=== PATIENT | female | born 1940 | race Caucasian/White ===

== ENCOUNTER → 2017-04-28 | Outpatient (CLI) | payer OTHER ==
[2015-01-22 09:21] VITALS: BP 174/89
[~2017-04-28] MED LIST: CARV6.252 PO; CEPH-264 PO; CITA10TA4 PO; CRESTOR20 MG PO; GLIM1TAB2 PO; HYDR12.58 PO; LISI-338 PO; LORA10TA3 PO; MAG355OR11 PO; MELO15TA23 PO; METF1000 PO
[2017-04-28 11:49] LABS: BASO # 0.1 x10^3/uL (0.0-0.2); BASO % 1 % (0-3); EOS # 0.3 x10^3/uL (0.0-0.7); EOS % 4 % (0-3); HEMATOCRIT 38.8 % (36.0-47.0); HEMOGLOBIN 13.2 g/dL (12.0-15.5); LYMPH # 1.9 x10^3/uL (1.0-4.8); LYMPH % 28 % (24-48); MEAN CORPUSCULAR HEMOGLOBIN 32 pg (25-35); MEAN CORPUSCULAR HGB CONC 34 g/dL (31-37); MEAN CORPUSCULAR VOLUME 93 fL (79-100); MONO # 0.6 x10^3/uL (0.0-1.1); MONO % 9 % (0-9); NEUT # 4.2 x10^3uL (1.8-7.7); NEUT % 59 % (31-73); PLATELET COUNT 180 x10^3/uL (140-400); RED BLOOD COUNT 4.18 x10^6/uL (3.50-5.40); RED CELL DISTRIBUTION WIDTH 14.4 % (11.5-14.5); WHITE BLOOD COUNT 7.1 x10^3/uL (4.0-11.0)
[2017-04-28 12:05] LABS: ALBUMIN 3.7 g/dL (3.4-5.0); CALCIUM 9.3 mg/dL (8.5-10.1); CREATININE 0.7 mg/dL (0.6-1.0); GFR 81.8; MAGNESIUM 1.4 mg/dL (1.8-2.4); PHOSPHORUS 4.1 mg/dL (2.6-4.7); POTASSIUM 3.6 mmol/L (3.5-5.1)
[2017-04-29 11:09] LABS: CALCIUM PTH 9.5 mg/dL (8.7-10.3); CREATININE PTH 0.71 mg/dL (0.57-1.00); PTH INTACT 29 pg/mL (15-65)
== END | disposition home or self-care (01) ==
LOC: LAB 10:57
PROVIDERS: ATTEND Internal Medicine Nephrology
DX: E87.1 Hypo-osmolality and hyponatremia (principal); E11.9 Type 2 diabetes mellitus without complications; I10 Essential (primary) hypertension; E21.5 Disorder of parathyroid gland, unspecified; Z68.33 Body mass index [BMI] 33.0-33.9, adult; F17.200 Nicotine dependence, unspecified, uncomplicated
CPT/HCPCS: 36415; 80069; 82306; 83735; 83970; 85025

== ENCOUNTER 2021-02-10 18:36 | Inpatient (IN) | payer MEDICARE, OTHER ==
[~2021-02-10] VITALS: Ht 157.5 cm; Wt 85.1 kg
[~2021-02-10 18:36] MED LIST changes: -CARV6.252 PO; +CARV6.2541 PO; -CITA10TA4 PO; +CITA10TA5 PO; -GLIM1TAB2 PO; +GLIM1TAB7 PO; -LISI-338 PO; +LISI5TAB15 PO
[2021-02-10] MEDS ORDERED: IV NORMAL SALINE 1,000ML 1,000 ML IV ONE (20:30)
[2021-02-10 20:51] LABS: BASO % 1 % (0-3); EOS # 0.1 x10^3/uL (0.0-0.7); EOS % 2 % (0-3); HEMATOCRIT 42.4 % (36.0-47.0); HEMOGLOBIN 13.5 g/dL (12.0-15.5); LYMPH # 0.8 x10^3/uL (1.0-4.8); LYMPH % 13 % (24-48); MEAN CORPUSCULAR HEMOGLOBIN 30 pg (25-35); MEAN CORPUSCULAR HGB CONC 32 g/dL (31-37); MEAN CORPUSCULAR VOLUME 93 fL (79-100); MONO # 0.7 x10^3/uL (0.0-1.1); MONO % 12 % (0-9); NEUT # 4.7 x10^3uL (1.8-7.7); NEUT % 73 % (31-73); PLATELET COUNT 131 x10^3/uL (140-400); RED BLOOD COUNT 4.55 x10^6/uL (3.50-5.40); WHITE BLOOD COUNT 6.5 x10^3/uL (4.0-11.0)
--- NOTE | 2021-02-10 20:58 | PHYS DOC ---
Past History Past Medical History: COPD, Diabetes, Heart Disease, Other (FARRAH VYAS APRN) Past Surgical History: Coronary Bypass Surgery, Hysterectomy, Other (FARRAH VYAS APRN) Alcohol Use: None Drug Use: None (FARRAH VYAS APRN) General Adult EDM: Chief Complaint: HYPERTENSION HPI: HPI: Patient is a 80-year-old female presents with daughter for elevated blood sugar. Patient states "I feel completely fine, my family is the one that made me come in". Patient denies chest pain, shortness of breath, recent illness. Patient is alert and oriented denies any complaints at this time. (FARRAH VYAS APRN) Review of Systems: Review of Systems: ROS At least 10 ROS systems have been reviewed and are negative except as documented in the HPI. General: Negative except as outlined in HPI above. Skin: Negative except as outlined in HPI above. HEENT: Negative except as outlined in HPI above. Neck: Negative except as outlined in HPI above. Respiratory: Negative except as outlined in HPI above.. Cardiovascular: Negative except as outlined in HPI above. Abdomen: Negative except as outlined in HPI above. : Negative except as outlined in HPI above. Back/MSK: Negative except as outlined in HPI above. Neuro: Negative except as outlined in HPI above. Psych: Negative except as outlined in HPI above. (FARRAH VYAS APRN) Current Medications: Current Meds: Current Medications Medications (Trade) Dose Ordered Sig/Apryl Start Time Stop Time Status Last Admin Dose Admin Sodium Chloride 1,000 ml @ 1,000 mls/hr 1X ONCE 02/10/21 20:30 02/10/21 21:29 (FARRAH VYAS APRN) Allergies: Allergies: Allergies Coded Allergies Type Severity Reaction Last Updated Verified No Known Drug Allergies 01/22/15 No (FARRAH VYAS APRN) Physical Exam: PE: Constitutional: Well developed, well nourished, no acute distress, non-toxic appearance. [] HENT: Normocephalic, atraumatic, bilateral external ears normal, oropharynx moist, no oral exudates, nose normal. [] Eyes: PERRLA, EOMI, conjunctiva normal, no discharge. [] Neck: Normal range of motion, no tenderness, supple, no stridor. [] Cardiovascular:Heart rate regular rhythm, no murmur [] Lungs & Thorax: Bilateral breath sounds clear to auscultation [] Abdomen: Bowel sounds normal, soft, no tenderness, no masses, no pulsatile masses. [] Skin: Warm, dry, no erythema, no rash. [] Back: No tenderness, no CVA tenderness. [] Extremities: No tenderness, no cyanosis, no clubbing, ROM intact, no edema. [] Neurologic: Alert and oriented X 3, normal motor function, normal sensory function, no focal deficits noted. [] Psychologic: Affect normal, judgement normal, mood normal. [] (FARRAH VYAS APRN) Current Patient Data: Labs: Laboratory Tests Test 02/10/21 19:07 Glucose (Fingerstick) 258 mg/dL (70-99) H Vital Signs: Vital Signs Date Time Temp Pulse Resp B/P (MAP) Pulse Ox O2 Delivery O2 Flow Rate FiO2 02/10/21 19:20 98.6 90 18 142/76 (98) 89 Nasal Cannula 3.0 (FARRAH VYAS APRN) EKG: EKG: HR 89 BPM. No STEMI. Read by Dr. Mendoza at 2051 (FARRAH VYAS APRN) Radiology/Procedures: Radiology/Procedures: []XR CHEST 1V INDICATION: cough COMPARISON STUDY: None. FINDINGS: Lungs: Normal lung volume. Patchy bilateral heterogeneous opacities. Indistinct pulmonary vasculature. Pleura: No pleural effusion or pneumothorax. Heart and Mediastinum: Cardiomegaly. Tortuous atherosclerotic aorta. CABG. Cardiac valve replacement. IMPRESSION: Patchy bilateral opacities, likely edema or infection. Electronically signed by: Buster Bear MD (02/10/2021 10:00 PM) [facility] (FARRAH VYAS APRN) Heart Score: C/O Chest Pain: No Risk Factors: Risk Factors: DM, Current or recent (<one month) smoker, HTN, HLP, family history of CAD, obesity. Risk Scores: Score 0 - 3: 2.5% MACE over next 6 weeks - Discharge Home Score 4 - 6: 20.3% MACE over next 6 weeks - Admit for Clinical Observation Score 7 - 10: 72.7% MACE over next 6 weeks - Early Invasive Strategies (FARRAH VYAS APRN) Course & Med Decision Making: Course & Med Decision Making Pertinent Labs and Imaging studies reviewed. (See chart for details) [] 80-year-old female presents with daughter per family request for elevated blood sugar. Blood sugar on arrival was 258. Patient's alert and oriented and denying any complaints. Denying chest pain, shortness of breath. Patient was hypoxic, 86% on 3 L. Patient placed on 4 L and some saturation improved to low 90s. Discussed with daughter and patient that she would most likely need to be admitted overnight for hypoxia. Patient was hesitant about being admitted but agreed after discussing with daughter. All labs were unremarkable. Chest x-ray suspicious for infection. Patient started on Rocephin and azithromycin. Rapid Covid was negative. Discussed patient's case with Dr. Persaud. Patient will be accepting to telemetry for acute/on chronic respiratory failure. (FARRAH VYAS APRN) Dragon Disclaimer: Dragon Disclaimer: This electronic medical record was generated, in whole or in part, using a voice recognition dictation system. (FARRAH VYAS APRN) Departure Departure: Impression: Primary Impression: Acute and chronic respiratory failure ([id number]) Qualified Codes: J96.21 - Acute and chronic respiratory failure with hypoxia Additional Impression: Hyperglycemia due to type 2 diabetes mellitus Qualified Codes: E11.65 - Type 2 diabetes mellitus with hyperglycemia; Z79.4 - FDC (current) use of insulin Disposition: ADMITTED INPATIENT Admitting Physician: Polo Persaud (FARRAH VYAS APRN) Condition: STABLE Referrals: JULIO REYNA MD (PCP) Attending Signature Attending Signature I have reviewed the PA/ELECTRONICS ENGINEERING TECHNOLOGIST's note and plan of care. I was available for consultation as needed during the patient's visit in the emergency department. I agree with the clinical impression, plan, and disposition. (YAMILKA MENDOZA DO) FARRAH VYAS APRN Feb 10, 2021 20:58 YAMILKA MENDOZA DO Feb 11, 2021 02:02
[2021-02-10 21:11] LABS: CALCIUM 8.6 mg/dL (8.5-10.1); CREATININE 0.8 mg/dL (0.6-1.0); GFR 69.4
[2021-02-10 21:17] LABS: ALBUMIN/GLOBULIN RATIO 0.8 (1.0-1.7); TOTAL BILIRUBIN 0.8 mg/dL (0.2-1.0)
--- NOTE | 2021-02-10 22:03 | RAD ---
XR CHEST 1V INDICATION: cough COMPARISON STUDY: None. FINDINGS: Lungs: Normal lung volume. Patchy bilateral heterogeneous opacities. Indistinct pulmonary vasculature . Pleura: No pleural effusion or pneumothorax. Heart and Mediastinum: Cardiomegaly. Tortuous atherosclerotic aorta. CABG. Cardiac valve replacement. IMPRESSION: Patchy bilateral opacities, likely edema or infection. Electronically signed by: Buster Bear MD (02/10/2021 10:00 PM) [facility] CAREAnabel
[2021-02-10] MEDS ORDERED: AZITHROMYCIN 500 MG in IV NORMAL SALINE 250ML 250 ML IV ONE (23:00)
[2021-02-10 23:24] VITALS: BP 138/69
[2021-02-11 05:34] VITALS: BP 147/75
[2021-02-11 09:01] LABS: BASO % 1 % (0-3); EOS # 0.2 x10^3/uL (0.0-0.7); EOS % 3 % (0-3); HEMATOCRIT 40.2 % (36.0-47.0); HEMOGLOBIN 13.1 g/dL (12.0-15.5); LYMPH # 1.2 x10^3/uL (1.0-4.8); LYMPH % 18 % (24-48); MEAN CORPUSCULAR HEMOGLOBIN 30 pg (25-35); MEAN CORPUSCULAR HGB CONC 33 g/dL (31-37); MEAN CORPUSCULAR VOLUME 93 fL (79-100); MONO # 0.6 x10^3/uL (0.0-1.1); MONO % 10 % (0-9); NEUT # 4.5 x10^3uL (1.8-7.7); NEUT % 69 % (31-73); PLATELET COUNT 125 x10^3/uL (140-400); RED BLOOD COUNT 4.34 x10^6/uL (3.50-5.40); RED CELL DISTRIBUTION WIDTH 15.2 % (11.5-14.5); WHITE BLOOD COUNT 6.5 x10^3/uL (4.0-11.0)
[2021-02-11 09:15] LABS: ALBUMIN 2.9 g/dL (3.4-5.0); ALBUMIN/GLOBULIN RATIO 0.8 (1.0-1.7); CALCIUM 8.6 mg/dL (8.5-10.1); CREATININE 0.8 mg/dL (0.6-1.0); GFR 69.4; POTASSIUM 3.8 mmol/L (3.5-5.1); TOTAL BILIRUBIN 0.6 mg/dL (0.2-1.0); TOTAL PROTEIN 6.7 g/dL (6.4-8.2)
[2021-02-11 10:50] VITALS: BP 149/73
[2021-02-11] MEDS ORDERED: FUROSEMIDE 40 MG/4 ML VIAL IVP ONE (13:00)
--- NOTE | 2021-02-11 13:13 | EKG ---
[address] [address] Test Date: 2021-02-10 Test Time: 20:44:37 Pat Name: ALANA JULIAN Department: Room: 107 A Gender: F District Sales Representative: : 1940 Requested By: FARRAH VYAS Order Number: [id number] Reading MD: Dane Yarbrough Measurements Intervals [place] Rate: 89 P: 53 IA: 220 QRS: 183 QRSD: 86 T: 54 QT: 386 QTc: 471 Interpretive Statements SINUS RHYTHM VENTRICULAR PREMATURE COMPLEX(ES) PROLONGED IA INTERVAL QRS(T) CONTOUR ABNORMALITY CONSISTENT WITH ANTEROSEPTAL INFARCT AGE UNDETERMINED ABNORMAL ECG RI6.02 No previous ECG available for comparison Electronically Signed On 02-11-2021 15:57:54 CDT by Dane Yarbrough
[2021-02-11] MEDS: ENOXAPARIN 40 MG/0.4 ML SYRINGE. SQ SCH (13:48)
--- NOTE | 2021-02-11 14:50 | HP ---
DATE OF SERVICE: 02/11/2021 ADMIT DATE: 02/10/2021 HISTORY OF PRESENT ILLNESS: The patient is a 80-year-old female patient who was brought yesterday by her daughter to the Emergency Room, apparently for elevated blood sugar. The patient herself stated that she is completely fine and her family is the one that made her come. On questioning her, she did complain of cough with whitish sputum. Did complain of shortness of breath, but denied any orthopnea or paroxysmal nocturnal dyspnea. Did complain of swelling of both legs. She is on oxygen and she continues to smoke about 15 cigarettes a day. She apparently was evaluated in the Emergency Room and has had both lab work and imaging studies. Her lab work showed that her white cell count was normal at 6500. Her chemistry showed she has hyperglycemia and elevated bicarbonate, but otherwise her chemistry was mostly unremarkable. Did have a chest x-ray, which showed that the patient's lungs showed patchy bilateral heterogenous opacities and indistinct pulmonary vasculature. There was no pleural effusion or pneumothorax. The heart was enlarged with tortuous atherosclerotic aorta, coronary artery bypass graft and cardiac valve replacement and that the patient has patchy bilateral opacities, likely edema or infection. The patient was admitted, was given treatment with IV ceftriaxone as well as Zithromax and also a liter of normal saline, was admitted for further evaluation and treatment. PAST MEDICAL HISTORY: Significant for hypertension, hyperlipidemia, coronary artery disease status post CABG and bioprosthetic valve replacement, chronic obstructive pulmonary disease, and nicotine addiction. She also has history of glaucoma. PAST SURGICAL HISTORY: Significant for total abdominal hysterectomy and bilateral salpingo-oophorectomy, coronary artery bypass graft surgery, bioprosthetic valve replacement, bilateral cataract extraction, as well as appendectomy. ALLERGIES: She has no known drug allergies. MEDICATIONS: She is currently on the following medication: She is on loratadine 10 mg once a day, cephalexin 500 mg 3 times a day, carvedilol 6.25 mg twice a day, lisinopril 5 mg once a day, meloxicam 15 mg daily, citalopram hydrobromide 10 mg once a day, hydrochlorothiazide 25 mg once a day, Mylanta 15 mL after meals and as needed, metformin 1000 mg twice a day, glimepiride 1 mg daily and Crestor 20 mg at bedtime. FAMILY HISTORY: She has 3 sisters and 2 older and 2 younger sisters are still alive. Her father at age of 74 due to complication of coronary artery disease. Mother at age of 90. SOCIAL HISTORY: She is , has 1 son and 4 daughters. She continues to smoke about 15 cigarettes a day. She does not drink alcohol or use recreational drugs. 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 REVIEW OF SYSTEMS: The patient denied any blurring of vision, has bilateral cataract extraction and has glaucoma, but denied any macular degeneration. Denied any earache, tinnitus or sensory deafness. Denied any nosebleed, stuffy nose or postnasal drip. Denied any sore throat, sore tongue, toothache, hoarseness of voice or difficulty swallowing. She denied any nausea, vomiting, diarrhea or constipation. Denied any hematemesis, melena or hematochezia. Denied any dysuria, frequency or hematuria. Denied any chest pain. Did complain of shortness of breath, cough with whitish sputum. Denied any chills, rigors or fever. PHYSICAL EXAMINATION: GENERAL: On arrival to the Emergency Room, the patient looked well and was clearly in no apparent respiratory distress. No pallor, jaundice, cyanosis or thyromegaly. No jugular venous distention. No limb edema. VITAL SIGNS: Her heart rate was 90, blood pressure is 142/76, temperature was 98.6, respiratory rate was 18 and oxygen saturation was 89% on room air. HEAD, EYES, EARS, NOSE, AND THROAT: Normocephalic, atraumatic. NECK: Supple. HEART: Showed normal first and second heart sounds, no gallop, rub or murmur. CHEST: Showed central trachea, equally bilateral chest expansion, air entry, vesicular breath sounds with bilateral basal crepitation. I could not appreciate any rhonchi. ABDOMEN: Distended, soft, nontender. NEUROLOGIC: She was grossly intact. EXTREMITIES: Bilateral lower extremities showed no clubbing, cyanosis, but bilateral lower limb edema. LABORATORY DATA: Her lab work on arrival showed a white cell count of 6500, hemoglobin 13, hematocrit 42, MCV 93, and platelet count of 131,000 with normal manual differential. Her chemistry showed a serum sodium 140, potassium 4, chloride 101, bicarbonate 37, anion gap of 2, BUN 13, creatinine 0.8. Estimated GFR was 69 mL per minute. Her glucose 111, calcium was 8.6. Total bilirubin, AST, ALT were normal. Alkaline phosphatase slightly elevated. Total protein 7, albumin 3. ASSESSMENT AND PLAN: In summary, the patient was admitted with [id number] hypoxic respiratory failure and probably [id number] heart failure. Has mild hyperglycemia. The patient was started on IV antibiotic in the form of Zithromax and ceftriaxone. Her x-ray showed patchy bilateral infiltrate. Plan is to reconcile all her medication. We will continue with IV antibiotics. We will add also IV Lasix and repeat all her labs again and decide on further management accordingly. ERIC/NELL/IQB DR: [place] TID: [id number]
[2021-02-11 15:04] VITALS: BP 161/90
[2021-02-11] MEDS: CARVEDILOL 6.25 MG TABLET PO SCH (16:11)
[2021-02-11] MEDS: metFORMIN 500 MG TABLET PO SCH (16:11)
[2021-02-11] MEDS: ATORVASTATIN CALCIUM 20 MG TABLET PO SCH (20:07)
[2021-02-11] MEDS: POTASSIUM CHLORIDE 20 MEQ TABLET.ER. PO SCH (20:07)
[2021-02-11 20:24] VITALS: BP 131/72
--- NOTE | 2021-02-12 00:55 | PN ---
DATE: 02/11/2021 SUBJECTIVE: The patient is sitting comfortably in her chair, eating her lunch. She continued to complain of cough with whitish sputum and some shortness of breath on exertion and swollen legs. Denied any chest pain. Denied any chills, rigors, or fever. Denied any orthopnea or paroxysmal nocturnal dyspnea. PHYSICAL EXAMINATION: GENERAL: When I examined her, she looked well and was clearly in no apparent respiratory distress. VITAL SIGNS: Her heart rate was 87, blood pressure was 149/73, temperature was 98.4, respiratory rate 20, and oxygen saturation was 91% on 4 liters of oxygen. HEAD, EYES, EARS, NOSE, AND THROAT: Normocephalic and atraumatic. NECK: Supple. HEART: Normal first and second heart sounds, no gallop or murmur. CHEST: Showed central trachea, equal bilateral chest expansion, air entry, vesicular breath sounds with bilateral basal crepitation. I could not appreciate any rhonchi. ABDOMEN: Distended, soft, and nontender. NEUROLOGIC: She was grossly intact. Her intake over the last 24 hours was 1400. No output was recorded. LABORATORY DATA: As of this morning, her white cell count was 6500, hemoglobin 13, hematocrit 40, MCV 93, and platelet count of 125,000. Her chemistry showed serum sodium 140, potassium 3.8, chloride 100, bicarbonate 35, anion gap of 5, BUN 9, and creatinine 0.8. Estimated GFR was 69 mL per minute. Her glucose was 180. Calcium was 8.6. Total bilirubin, AST, ALT, and alkaline phosphatase were normal. Total protein 6.7, albumin was 2.9. ASSESSMENT: 1. Acute on chronic hypoxic respiratory failure, probably community-acquired pneumonia. 2. Acute on chronic, likely diastolic congestive heart failure. Other medical problems include hypertension, hyperlipidemia, coronary artery disease status post coronary artery bypass grafting, chronic obstructive pulmonary disease, and continued nicotine use disorder. PLAN: My plan is to continue with IV antibiotic in the form of ceftriaxone as well as oral Zithromax. I reconciled all her medications and start her also on IV Lasix. We will repeat all her lab works again to evaluate her, and if she remains stable, she could be discharged to home on oral antibiotic and oral diuretics. ERIC/ASHTYN/CHIDI DR: [place] TID: [id number]
[2021-02-12 05:29] VITALS: BP 142/75
[2021-02-12 06:44] LABS: ALBUMIN 2.7 g/dL (3.4-5.0); ALBUMIN/GLOBULIN RATIO 0.7 (1.0-1.7); CALCIUM 8.7 mg/dL (8.5-10.1); CREATININE 0.8 mg/dL (0.6-1.0); GFR 69.4; POTASSIUM 3.7 mmol/L (3.5-5.1); TOTAL BILIRUBIN 0.8 mg/dL (0.2-1.0); TOTAL PROTEIN 6.4 g/dL (6.4-8.2)
[2021-02-12] MEDS: AZITHROMYCIN 250 MG TABLET. PO SCH (07:49)
[2021-02-12] MEDS: CETIRIZINE HCL 10 MG TABLET PO SCH (07:49)
[2021-02-12] MEDS: metFORMIN 500 MG TABLET PO SCH ×2 (07:49→16:33)
[2021-02-12] MEDS: GLIMEPIRIDE 2 MG TABLET PO SCH (07:50)
[2021-02-12] MEDS: CARVEDILOL 6.25 MG TABLET PO SCH ×2 (07:50→16:33)
[2021-02-12] MEDS: POTASSIUM CHLORIDE 20 MEQ TABLET.ER. PO SCH ×2 (07:50→21:00)
[2021-02-12] MEDS: LISINOPRIL 5 MG TABLET. PO SCH (07:51)
[2021-02-12] MEDS: FUROSEMIDE 40 MG/4 ML VIAL IVP SCH (07:51)
[2021-02-12] MEDS: CITALOPRAM 10 MG TABLET. PO SCH (07:51)
--- NOTE | 2021-02-12 08:51 | PDOC2 ---
MAHESH JOVEL HISTOLOGY SUPERVISOR 02/12/21 0851: CARDIAC CONSULT DATE OF CONSULT DOS: DATE: 02/12/21 TIME: 08:44 REASON FOR CONSULT Reason for Consult CHF REFERRING PHYSICIAN Referring Physician Dr. Elmore SOURCE Source: Chart review, Patient HPI History of Present Illness This is a 80 yo female who presented secondary to elevated blood sugars following encouragement from her family. Upon further investigation, patient did reports some shortness of breath, LE edema, and cough productive of white/clear sputum. CXR notable for patchy bilateral opacities, likely edema or infection. Cardiology consultation was obtained due to concerns of CHF. She denies any dizziness, diaphoresis, or nausea/vomiting. Reports LE edema is slightly better following diuresis. Followed previously with [facility] cardiology. PAST MEDICAL HISTORY Cardiovascular: CAD, CHF, HTN, hyperipidemia, aortic stenosis (s/p bioprosthetic AVR) Pulmonary: COPD, Other (ADAM) GI: GERD Psych: Depression Endocrine: Diabetes PAST SURGICAL HISTORY Past Surgical History: Appendectomy, CABG, Cataract Removal, Hysterectomy FAMILY HISTORY Family History: Diabetes, Heart Disease, Hypertension SOCIAL HISTORY Smoke: <1 pack per day ALCOHOL: none Drugs: None Lives: with Family CURRENT MEDICATIONS Current Medications Current Medications Sodium Chloride 1,000 ml @ 1,000 mls/hr 1X ONCE IV Last administered on 02/10/21at 20:30; Start 02/10/21 at 20:30; Stop 02/10/21 at 21:29; Status DC Ceftriaxone Sodium 1 gm/ Sodium Chloride 50 ml @ 100 mls/hr 1X ONCE IV Last administered on 02/10/21at 23:33; Start 02/10/21 at 23:00; Stop 02/10/21 at 23:29; Status DC Azithromycin 500 mg/Sodium Chloride 250 ml @ 250 mls/hr 1X ONCE IV Last administered on 02/10/21at 23:33; Start 02/10/21 at 23:00; Stop 02/10/21 at 23:59; Status DC Carvedilol (Coreg) 6.25 mg BIDWMEALS PO Last administered on 02/12/21at 07:50; Start 02/11/21 at 17:00 Citalopram Hydrobromide (CeleXA) 10 mg DAILY PO Last administered on 02/12/21at 07:51; Start 02/12/21 at 09:00 Lisinopril (Prinivil) 25 mg DAILY PO Last administered on 02/12/21 07:51; Start 02/12/21 at 09:00 Glimepiride (Amaryl) 1 mg DAILY PO Last administered on 02/12/21 07:50; Start 02/12/21 at 09:00 Cetirizine HCl (ZyrTEC) 10 mg DAILY PO Last administered on 02/12/21 07:49; Start 02/12/21 at 09:00 Metformin HCl (Glucophage) 1,000 mg BIDWMEALS PO Last administered on 02/12/21 07:49; Start 02/11/21 at 17:00 Atorvastatin Calcium (Lipitor) 80 mg QHS PO Last administered on 02/11/21 20:07; Start 02/11/21 at 21:00 Ceftriaxone Sodium 1 gm/ Sodium Chloride 50 ml @ 100 mls/hr Q24H IV Last administered on 02/11/21at 20:08; Start 02/11/21 at 21:00 Azithromycin (Zithromax) 250 mg DAILY PO Last administered on 02/12/21at 07:49; Start 02/12/21 at 09:00 Furosemide (Lasix) 40 mg 1X ONCE IVP Last administered on 02/11/21 13:49; Start 02/11/21 at 13:00; Stop 02/11/21 at 13:17; Status DC Potassium Chloride (Klor-Con) 20 meq BID PO Last administered on 02/12/21 07:50; Start 02/11/21 at 21:00 Enoxaparin Sodium (Lovenox 40mg Syringe) 40 mg Q24H SQ Last administered on 02/11/21at 13:48; Start 02/11/21 at 13:00 Furosemide (Lasix) 40 mg DAILY IVP Last administered on 02/12/21 07:51; Start 02/12/21 at 09:00 Active Scripts Active Keflex (Cephalexin) 500 Mg Capsule 1 Cap PO TID Reported Meloxicam 15 Mg Tablet 1 Tab PO DAILY Citalopram Hbr (Citalopram Hydrobromide) 10 Mg Tablet 10 Mg PO DAILY Loratadine 10 Mg Tablet 1 Tab PO DAILY Maalox Advanced Suspension (Mag Hydrox/Al Hydrox/Simeth) 770 Ml Oral.susp 770 Ml PO Crestor (Rosuvastatin Calcium) 20 Mg Tablet 20 Mg PO HS Lisinopril 5 Mg Tablet 5 Tab PO DAILY Hydrochlorothiazide Tablet (Hydrochlorothiazide) 12.5 Mg Tablet 25 Tab PO DAILY Glucophage (Metformin Hcl) 1,000 Mg Tablet 1,000 Tab PO BID Carvedilol (Carvedilol) 6.25 Mg Tablet 6.25 Tab PO BID Glimepiride 1 Mg Tablet 1 Tab PO DAILY ALLERGIES Allergies: Coded Allergies: No Known Drug Allergies (Unverified , 01/22/15) ROS Review of Systems 14 point ROS conducted with pertinent positives noted above in HPI PHYSICAL EXAM General: Alert, Oriented X3, Cooperative, No acute distress HEENT: Atraumatic, Mucous membr. moist/pink Lungs: Other (diminished ) Heart: Regular rate Abdomen: Soft, No tenderness Extremities: Normal pulses, Other (2+ bilateral LE edema ) Skin: No breakdown Neuro: Normal speech, Sensation intact Psych/Mental Status: Mental status NL, Mood NL MUSCULOSKELETAL: Osteoarthritic changes both hands VITALS Vital Signs Vital Signs Date Time Temp Pulse Resp B/P (MAP) Pulse Ox O2 Delivery O2 Flow Rate FiO2 02/12/21 07:51 76 142/75 02/12/21 05:29 97.5 20 90 Nasal Cannula 4.0 LABS LABS Laboratory Tests Test 02/10/21 19:07 02/10/21 20:36 02/10/21 21:44 02/10/21 21:45 Glucose (Fingerstick) 258 mg/dL (70-99) White Blood Count 6.5 x10^3/uL (4.0-11.0) Red Blood Count 4.55 x10^6/uL (3.50-5.40) Hemoglobin 13.5 g/dL (12.0-15.5) Hematocrit 42.4 % (36.0-47.0) Mean Corpuscular Volume 93 fL (79-100) Mean Corpuscular Hemoglobin 30 pg (25-35) Mean Corpuscular Hemoglobin Concent 32 g/dL (31-37) Red Cell Distribution Width 15.0 % (11.5-14.5) Platelet Count 131 x10^3/uL (140-400) Neutrophils (%) (Auto) 73 % (31-73) Lymphocytes (%) (Auto) 13 % (24-48) Monocytes (%) (Auto) 12 % (0-9) Eosinophils (%) (Auto) 2 % (0-3) Basophils (%) (Auto) 1 % (0-3) Neutrophils # (Auto) 4.7 x10^3uL (1.8-7.7) Lymphocytes # (Auto) 0.8 x10^3/uL (1.0-4.8) Monocytes # (Auto) 0.7 x10^3/uL (0.0-1.1) Eosinophils # (Auto) 0.1 x10^3/uL (0.0-0.7) Basophils # (Auto) 0.0 x10^3/uL (0.0-0.2) Sodium Level 140 mmol/L (136-145) Potassium Level 4.0 mmol/L (3.5-5.1) Chloride Level 101 mmol/L (98-107) Carbon Dioxide Level 37 mmol/L (21-32) Anion Gap 2 (6-14) Blood Urea Nitrogen 13 mg/dL (7-20) Creatinine 0.8 mg/dL (0.6-1.0) Estimated GFR (Cockcroft-Gault) 69.4 BUN/Creatinine Ratio 16 (6-20) Glucose Level 211 mg/dL (70-99) Calcium Level 8.6 mg/dL (8.5-10.1) Total Bilirubin 0.8 mg/dL (0.2-1.0) Aspartate Amino Transf (AST/SGOT) 36 U/L (15-37) Alanine Aminotransferase (ALT/SGPT) 40 U/L (14-59) Alkaline Phosphatase 119 U/L (46-116) Total Protein 7.0 g/dL (6.4-8.2) Albumin 3.0 g/dL (3.4-5.0) Albumin/Globulin Ratio 0.8 (1.0-1.7) SARS-CoV-2 Antigen (Rapid) Negative (NEGATIVE) Coronavirus (COVID-19)(PCR) Not detected (NOT DETECTD) Test 02/11/21 07:36 02/11/21 08:53 02/11/21 11:23 02/11/21 16:41 Glucose (Fingerstick) 140 mg/dL (70-99) 205 mg/dL (70-99) 248 mg/dL (70-99) White Blood Count 6.5 x10^3/uL (4.0-11.0) Red Blood Count 4.34 x10^6/uL (3.50-5.40) Hemoglobin 13.1 g/dL (12.0-15.5) Hematocrit 40.2 % (36.0-47.0) Mean Corpuscular Volume 93 fL (79-100) Mean Corpuscular Hemoglobin 30 pg (25-35) Mean Corpuscular Hemoglobin Concent 33 g/dL (31-37) Red Cell Distribution Width 15.2 % (11.5-14.5) Platelet Count 125 x10^3/uL (140-400) Neutrophils (%) (Auto) 69 % (31-73) Lymphocytes (%) (Auto) 18 % (24-48) Monocytes (%) (Auto) 10 % (0-9) Eosinophils (%) (Auto) 3 % (0-3) Basophils (%) (Auto) 1 % (0-3) Neutrophils # (Auto) 4.5 x10^3uL (1.8-7.7) Lymphocytes # (Auto) 1.2 x10^3/uL (1.0-4.8) Monocytes # (Auto) 0.6 x10^3/uL (0.0-1.1) Eosinophils # (Auto) 0.2 x10^3/uL (0.0-0.7) Basophils # (Auto) 0.0 x10^3/uL (0.0-0.2) Sodium Level 140 mmol/L (136-145) Potassium Level 3.8 mmol/L (3.5-5.1) Chloride Level 100 mmol/L (98-107) Carbon Dioxide Level 35 mmol/L (21-32) Anion Gap 5 (6-14) Blood Urea Nitrogen 9 mg/dL (7-20) Creatinine 0.8 mg/dL (0.6-1.0) Estimated GFR (Cockcroft-Gault) 69.4 BUN/Creatinine Ratio 11 (6-20) Glucose Level 180 mg/dL (70-99) Calcium Level 8.6 mg/dL (8.5-10.1) Total Bilirubin 0.6 mg/dL (0.2-1.0) Aspartate Amino Transf (AST/SGOT) 30 U/L (15-37) Alanine Aminotransferase (ALT/SGPT) 35 U/L (14-59) Alkaline Phosphatase 105 U/L (46-116) Total Protein 6.7 g/dL (6.4-8.2) Albumin 2.9 g/dL (3.4-5.0) Albumin/Globulin Ratio 0.8 (1.0-1.7) Test 02/11/21 20:17 02/12/21 05:47 02/12/21 07:47 Glucose (Fingerstick) 197 mg/dL (70-99) 169 mg/dL (70-99) Sodium Level 140 mmol/L (136-145) Potassium Level 3.7 mmol/L (3.5-5.1) Chloride Level 100 mmol/L (98-107) Carbon Dioxide Level 38 mmol/L (21-32) Anion Gap 2 (6-14) Blood Urea Nitrogen 12 mg/dL (7-20) Creatinine 0.8 mg/dL (0.6-1.0) Estimated GFR (Cockcroft-Gault) 69.4 BUN/Creatinine Ratio 15 (6-20) Glucose Level 155 mg/dL (70-99) Calcium Level 8.7 mg/dL (8.5-10.1) Total Bilirubin 0.8 mg/dL (0.2-1.0) Aspartate Amino Transf (AST/SGOT) 34 U/L (15-37) Alanine Aminotransferase (ALT/SGPT) 36 U/L (14-59) Alkaline Phosphatase 100 U/L (46-116) FS-Qrd-Q-Type Natriuretic Peptide 2629 pg/mL (0-449) Total Protein 6.4 g/dL (6.4-8.2) Albumin 2.7 g/dL (3.4-5.0) Albumin/Globulin Ratio 0.7 (1.0-1.7) ASSESSMENT/PLAN Assessment/Plan 1. Diabetes, II with hyperglycemia; as per IM 2. Mild acute on chronic probable diastolic CHF; s/p IV diuresis 3. CAD s/p CABG 2012 4. Aortic stenosis s/p bioprosthetic AVR 5. Hypertension; controlled overall 6. Hyperlipidemia; statin 7. COPD with continued tobaccoism; discussed/encouraged cessation Recommendations Diuresis with monitoring of renal function Continue ACEi, BB therapy Secondary prevention Add ASA Outpatient echo Follow up with primary cardiology team at [facility] JUSTINA ACOSTA MD 02/13/21 1657: CARDIAC CONSULT ASSESSMENT/PLAN Assessment/Plan Patient seen and examined on 02/12/2021. I agree with our nurse practitioners assessment and plan. Diabetes, II with hyperglycemia; as per IM Mild acute on chronic probable diastolic CHF; improving s/p IV diuresis. Monitor renal function. CAD s/p CABG 2012. Continue medical treatment. Add ASA. Aortic stenosis s/p bioprosthetic AVR Hypertension; controlled Hyperlipidemia; statin COPD with continued tobaccoism; discussed/encouraged cessation MAHESH JOVEL APRN Feb 12, 2021 08:51 JUSTINA ACOSTA MD Feb 13, 2021 16:57
[2021-02-12 10:55] VITALS: BP 120/72
[2021-02-12] MEDS: ENOXAPARIN 40 MG/0.4 ML SYRINGE. SQ SCH (12:28)
[2021-02-12 15:52] VITALS: BP 145/71
[2021-02-12 19:38] VITALS: BP 115/55
--- NOTE | 2021-02-12 20:45 | PN ---
DATE: 02/12/2021 SUBJECTIVE: The patient is sitting comfortably in her chair in no apparent respiratory distress. She seemed to be much improved, has been up and about, walking. She is not coughing like yesterday. PHYSICAL EXAMINATION: GENERAL: When I examined her, she looked well with no pallor, jaundice, cyanosis or thyromegaly. No jugular venous distention. There is continued mild bilateral lower limb edema. VITAL SIGNS: Her heart rate was 76, blood pressure is 120/72, temperature was 98.3, respiratory rate 20, and oxygen saturation was 89% on 4 liters of oxygen. HEAD, EYES, EARS, NOSE, AND THROAT: Normocephalic, atraumatic. NECK: Supple. HEART: Normal first and second heart sounds. No gallop, rub or murmur. CHEST: Clear to auscultation. No crepitation or rhonchi. She does have actually bilateral basal crepitation, more so on the left than right. I could not appreciate any rhonchi. ABDOMEN: Distended, soft, nontender. NEUROLOGIC: She was grossly intact. Her intake over the last 24 hours was 1400, no output was recorded. LABORATORY DATA: As of this morning, her white cell count was 6500, hemoglobin 13, hematocrit 40, MCV 93, and platelet count of 125,000. Her chemistry showed a serum sodium of 140, potassium 3.7, chloride 100, bicarbonate 38, anion gap of 2, BUN 12, creatinine was 0.8. Estimated GFR was 69 mL per minute. Her glucose 155, calcium was 8.7. Total bilirubin, AST, ALT, alkaline phosphatase were normal. Her BNP was high at 2629. Total protein was 6.4, albumin was 2.7. ASSESSMENT: 1. Acute on chronic hypoxic respiratory failure. 2. Acute on chronic diastolic congestive heart failure. 3. Community-acquired pneumonia. 4. Chronic obstructive pulmonary disease. 5. Hypertension. 6. Hyperlipidemia. 7. Coronary artery disease status post bypass graft surgery. 8. Continued nicotine dependence. PLAN: To continue with IV antibiotic. Continue with IV Lasix. She will be discharged tomorrow to continue on oral antibiotic and oral diuretics, probably home with home health. ERIC DR: [place] TID: [id number]
[2021-02-12] MEDS: ATORVASTATIN CALCIUM 20 MG TABLET PO SCH (21:06)
[2021-02-13 05:24] VITALS: BP 108/70
[2021-02-13] MEDS: GLIMEPIRIDE 2 MG TABLET PO SCH (07:51)
[2021-02-13] MEDS: CITALOPRAM 10 MG TABLET. PO SCH (07:51)
[2021-02-13] MEDS: CARVEDILOL 6.25 MG TABLET PO SCH (07:51)
[2021-02-13] MEDS: POTASSIUM CHLORIDE 20 MEQ TABLET.ER. PO SCH (07:52)
[2021-02-13] MEDS: FUROSEMIDE 40 MG/4 ML VIAL IVP SCH (07:52)
[2021-02-13] MEDS: CETIRIZINE HCL 10 MG TABLET PO SCH (07:52)
[2021-02-13] MEDS: AZITHROMYCIN 250 MG TABLET. PO SCH (07:52)
[2021-02-13] MEDS: LISINOPRIL 5 MG TABLET. PO SCH (07:55)
[2021-02-13] MEDS: metFORMIN 500 MG TABLET PO SCH (07:55)
[2021-02-13] MEDS ORDERED: ASPIRIN ENTERIC COATED 81 MG TABLET.DR. PO SCH (08:00)
[2021-02-13 10:20] VITALS: BP 121/77
[2021-02-13] MEDS ORDERED: POTA-121 PO (12:47)
[2021-02-13] MEDS ORDERED: CEFD300C PO (12:47)
[2021-02-13] MEDS ORDERED: FURO40TA4 PO (12:47)
--- NOTE | 2021-02-13 12:49 | DISCH ---
HOME HEALTH DISCHARGE/MEDS DISCHARGE INFORMATION: Discharge Date: Feb 13, 2021 Final Diagnosis: Problems Medical Problems: (1) Acute and chronic respiratory failure ([id number]) Status: Acute (2) Hyperglycemia due to type 2 diabetes mellitus Status: Acute Condition on Discharge: Stable CODE STATUS: Code Status: DNR/DNI HOME HEALTH: Face to Face: I certify this patient is under my care and that I, or a nurse practitioner or physician's classroom assistant working with me, had a face to face encounter that meets the physician face to face encounter requirements with this patient on 02/13/2021 Medical Condition(s): Other Care Home For: Medication Management Physical Therapy For: Evalulation/Treatment Occupational Therapy For: Evaluation/Treatment POST DISCHARGE ORDERS: Activity Instructions for Disc: Activity as tolerated DIET AFTER DISCHARGE: Cardiac CERTIFICATION STATEMENT: Certification Statement: Based on the above finding, I certify that this patient is confined to the home and needs intermittent mcfp care, physical therapy and/or speech therapy, or continues to need occupational therapy.~ This patient is under my care, and I have initiated the establishment of the plan of care.~ This patient will be followed by myself or a community physician who will periodically review the plan of care. DISCHARGE MEDICATIONS: Home Meds Active Scripts Potassium Chloride (KLOR-CON M20) 20 Meq Tab.er.prt, 1 TAB PO DAILY for lasix for 30 Days, #30 TAB 5 Refills Prov:FADY CASTILLO MD 02/13/21 Furosemide (FUROSEMIDE) 40 Mg Tablet, 1 TAB PO DAILY for chf for 30 Days, #30 TAB 5 Refills Prov:FADY CASTILLO MD 02/13/21 Cefdinir (CEFDINIR) 300 Mg Capsule, 1 CAP PO BID for pneumonia, #14 CAP Prov:FADY CASTILLO MD 02/13/21 Reported Medications Meloxicam (MELOXICAM) 15 Mg Tablet, 1 TAB PO DAILY, #30 TAB 2 Refills 01/22/15 Citalopram Hydrobromide (CITALOPRAM HBR) 10 Mg Tablet, 10 MG PO DAILY, TAB 01/22/15 Loratadine (LORATADINE) 10 Mg Tablet, 1 TAB PO DAILY for SEASINAL ALLERGIES, #30 TAB 5 Refills 01/22/15 Mag Hydrox/Al Hydrox/Simeth (MAALOX ADVANCED SUSPENSION) 770 Ml Oral.susp, 770 ML PO for HEARTBURN / GAS 01/22/15 Rosuvastatin Calcium (CRESTOR) 20 Mg Tablet, 20 MG PO HS for HIGH CHOLESTEROL, #30 TAB 0 Refills 01/22/15 Lisinopril (LISINOPRIL) 5 Mg Tablet, 5 TAB PO DAILY, #30 TAB 5 Refills 01/22/15 Metformin Hcl (GLUCOPHAGE) 1,000 Mg Tablet, 1000 TAB PO BID for DIABETIC, #60 TAB 5 Refills 01/22/15 Carvedilol (CARVEDILOL ) 6.25 Mg Tablet, 6.25 TAB PO BID, #180 TAB 1 Refill 01/22/15 Glimepiride (GLIMEPIRIDE) 1 Mg Tablet, 1 TAB PO DAILY, #30 TAB 5 Refills 01/22/15 Discontinued Reported Medications Hydrochlorothiazide (HYDROCHLOROTHIAZIDE TABLET) 12.5 Mg Tablet, 25 TAB PO DAILY, #30 TAB 5 Refills 01/22/15 Discontinued Scripts Cephalexin (KEFLEX) 500 Mg Capsule, 1 CAP PO TID, #30 CAP Prov:REBA BRAVO MD 01/22/15 FADY CASTILLO MD Feb 13, 2021 12:49
[2021-02-13] MEDS ORDERED: AZIT250T PO (12:50)
[2021-02-13] MEDS: ENOXAPARIN 40 MG/0.4 ML SYRINGE. SQ SCH (12:51)
--- NOTE | 2021-02-13 14:10 | DS ---
DATE OF DISCHARGE: 02/13/2021 HOSPITAL COURSE: The patient is a 80-year-old female patient who was admitted through the Emergency Room at [facility] on 02/10 with a complaint of shortness of breath. Her blood sugar was suboptimally controlled and she also was found to have pneumonia and bmnit-up-etigddx diastolic congestive heart failure. She was treated with IV antibiotic in the form of ceftriaxone and Zithromax for community-acquired pneumonia and also IV Lasix and she did very well. PHYSICAL EXAMINATION: GENERAL: When I saw her today, she was sitting slightly propped up in bed, in no apparent distress. There is no pallor, jaundice, cyanosis or thyromegaly. No jugular venous distention. Mild bilateral lower limb edema. VITAL SIGNS: Her heart rate was 81, blood pressure was 121/77, temperature was 98, respiratory rate was 16, and her oxygen saturation was 90% on 4 liters of oxygen. HEAD, EYES, EARS, NOSE, AND THROAT: Normocephalic, atraumatic. NECK: Supple. HEART: Showed normal first and second heart sounds, no gallop, rub or murmur. CHEST: Clear to auscultation, no crepitation or rhonchi. ABDOMEN: Distended, soft, nontender. NEUROLOGIC: She is hard of hearing, but otherwise all cranial nerves are intact. She moves extremities without difficulty. She ambulates with a walker. She had bilateral lower extremity edema. Her intake was 1490, output was 500. LABORATORY DATA: As of this morning, her white cell count was 6500, hemoglobin 13, hematocrit 40, MCV 93, and platelet count of 125,000. Her blood sugar seems to be reasonably controlled. Her serum sodium was 140, potassium 3.7, chloride 100, bicarbonate 38, anion gap of 2, BUN 12, creatinine 0.8. Estimated GFR was 69 mL per minute. Her glucose 155, calcium was 8.7. Total bilirubin, AST, ALT, alkaline phosphatase were normal. Her BNP was 2629. Total protein 6.4, albumin 2.7. DISCHARGE MEDICATIONS: She was discharged home with home health to continue on azithromycin 250 mg once a day for 2 more days, cefdinir 300 mg twice a day for 7 more days, furosemide 40 mg once a day, potassium chloride for Klor-Con 20 mEq once a day, carvedilol 6.25 mg twice a day, citalopram hydrobromide 10 mg once a day, glimepiride 1 mg daily, lisinopril 5 mg once a day, loratadine 10 mg once a day, Maalox 15 mL after meals and as needed, meloxicam 15 mg that needs to be discontinued, metformin 1000 mg twice a day and Crestor 20 mg at bedtime. FINAL DISCHARGE DIAGNOSES: 1. Rxiyw-tt-uriprdo hypoxic respiratory failure. 2. Community-acquired pneumonia. 3. Yfvlr-wi-hwwnzem diastolic congestive heart failure. 4. Chronic obstructive pulmonary disease that is oxygen requiring. 5. Hypertension. 6. Hyperlipidemia. 7. Coronary artery disease, status post bypass graft surgery. 8. Continue with nicotine dependence. The patient will be discharged home with home health. KEY DR: [place] TID: [id number]
--- NOTE | 2021-02-13 18:51 | PDOC ---
Progress Note. Date of Service: DOS: DATE: 02/13/21 TIME: 18:48 Subjective: Patient seen and examined She looks and feels better today. Objective: Vital Signs/I&O: Vital Signs Date Time Temp Pulse Resp B/P (MAP) Pulse Ox O2 Delivery O2 Flow Rate FiO2 02/13/21 10:20 98.0 81 16 121/77 (92) 90 Nasal Cannula 4.0 I & O 02/12/21 02/12/21 02/13/21 15:00 23:00 07:00 Intake Total 840 ml 50 ml 0 ml Balance 840 ml 50 ml 0 ml Labs: Laboratory Tests Test 02/12/21 19:59 02/13/21 07:13 02/13/21 11:37 Glucose (Fingerstick) 202 mg/dL (70-99) H 143 mg/dL (70-99) H 144 mg/dL (70-99) H Physical Exam: Gen.: Alert, significant improvement. Cardiovascular: Normal S1 and S2 no murmurs Pulmonary: Mildly decreased breath sounds Abdomen: Soft nontender non-distended, bowel sounds present no masses Extremities: No clubbing, cyanosis or edema Neuro: Alert and oriented 3 Assessment: Diabetes, II with hyperglycemia; continue present treatment. As per IM Mild acute on chronic probable diastolic CHF; resume baseline medications. CAD s/p CABG 2012 Aortic stenosis s/p bioprosthetic AVR. Patient follows at [facility]. Hypertension; controlled overall. Continue present medical treatment. Hyperlipidemia; statin COPD with continued tobaccoism; discussed/encouraged cessation JUSTINA ACOSTA MD Feb 13, 2021 18:51
== END 2021-02-13 13:46 | disposition home health service (06) | DRG 177 ==
LOC: ER 18:36 → 1 SOUTH 22:42
PROVIDERS: ADMIT Hospitalist; ATTEND Hospitalist
DX: J69.0 Pneumonitis due to inhalation of food and vomit (principal); J96.21 Acute and chronic respiratory failure with hypoxia; I50.33 Acute on chronic diastolic (congestive) heart failure; J44.0 Chronic obstructive pulmonary disease with (acute) lower respiratory infection; J15.6 Pneumonia due to other Gram-negative bacteria; E11.65 Type 2 diabetes mellitus with hyperglycemia; E78.5 Hyperlipidemia, unspecified; F17.210 Nicotine dependence, cigarettes, uncomplicated; I11.0 Hypertensive heart disease with heart failure; F32.A Depression, unspecified; G47.33 Obstructive sleep apnea (adult) (pediatric); H40.9 Unspecified glaucoma; K21.9 Gastro-esophageal reflux disease without esophagitis; I25.10 Atherosclerotic heart disease of native coronary artery without angina pectoris; I35.0 Nonrheumatic aortic (valve) stenosis; Z79.4 Long term (current) use of insulin; Z82.49 Family history of ischemic heart disease and other diseases of the circulatory system; Z83.3 Family history of diabetes mellitus; Z90.710 Acquired absence of both cervix and uterus; Z95.1 Presence of aortocoronary bypass graft; Z95.3 Presence of xenogenic heart valve; Z98.41 Cataract extraction status, right eye; Z98.42 Cataract extraction status, left eye; Z20.822 Contact with and (suspected) exposure to COVID-19
CPT/HCPCS: 36415; 71045; 80053; 82947; 83880; 85025; 87426; 93005; 96360; 96361; J0456; J0696; J1650; J1940; J7050; U0003; 97110; 97116; 97530; 97535; 99285-25; J7030

== ENCOUNTER 2021-02-23 13:27 | Emergency (ER) | payer MEDICARE, OTHER ==
[~2021-02-23] VITALS: Ht 157.5 cm; Wt 85.1 kg
[~2021-02-23 13:27] MED LIST changes: +AZIT250T PO; +CEFD300C PO; +FURO40TA4 PO; +POTA-121 PO
--- NOTE | 2021-02-23 14:28 | RAD ---
AP chest. HISTORY: Palpitations AP view of the chest was compared with a study from February 10. Heart is enlarged. There are changes from previous valve surgery. There is no effusion. There are patchy infiltrates in both lungs. There has been a mild improvement compared to February 10 but not complete resolution. IMPRESSION: 1. Mild improvement compared to January with persistent areas of infiltrate bilaterally. Electronically signed by: Ke Dodd MD (02/23/2021 2:25 PM) [id number]
[2021-02-23 14:31] LABS: BASO % 1 % (0-3); EOS # 0.1 x10^3/uL (0.0-0.7); EOS % 3 % (0-3); HEMATOCRIT 42.1 % (36.0-47.0); HEMOGLOBIN 13.6 g/dL (12.0-15.5); LYMPH % 20 % (24-48); MEAN CORPUSCULAR HEMOGLOBIN 30 pg (25-35); MEAN CORPUSCULAR HGB CONC 32 g/dL (31-37); MEAN CORPUSCULAR VOLUME 92 fL (79-100); MONO # 0.5 x10^3/uL (0.0-1.1); MONO % 10 % (0-9); NEUT # 3.5 x10^3uL (1.8-7.7); NEUT % 67 % (31-73); PLATELET COUNT 141 x10^3/uL (140-400); RED BLOOD COUNT 4.56 x10^6/uL (3.50-5.40); WHITE BLOOD COUNT 5.2 x10^3/uL (4.0-11.0)
[2021-02-23 14:43] LABS: CREATININE 0.8 mg/dL (0.6-1.0); GFR 69.4; POTASSIUM 4.2 mmol/L (3.5-5.1)
--- NOTE | 2021-02-23 14:51 | PHYS DOC ---
Past History Past Medical History: COPD, Diabetes, Heart Disease, Other (RUBINA WINSTON) Past Surgical History: Coronary Bypass Surgery, Hysterectomy Additional Past Surgical Histo: cardiac valve replacement (RUBINA WINSTON) Alcohol Use: None Drug Use: None (RUBINA WINSTON) General Adult EDM: Chief Complaint: RAPID HEART RATE HPI: HPI: Patient is a 80 year old female with past medical history including COPD, heart disease and diabetes who presents from home with chief complaint of abnormal heartbeat. Patient denies any symptoms, but states her home health nurse instructed her to come to the emergency department due to an irregular heartbeat . Patient wears 3-4 L oxygen all the time at home. (RUBINA WINSTON) Review of Systems: Review of Systems: Constitutional: Denies fever or chills Eyes: Denies change in visual acuity HENT: Denies nasal congestion or sore throat Respiratory: Denies new onset cough or shortness of breath Cardiovascular: Denies chest pain or edema GI: Denies abdominal pain, nausea, vomiting, bloody stools or diarrhea : Denies dysuria Integument: Denies rash Neurologic: Denies headache, focal weakness or sensory changes (RUBINA WINSTON) Allergies: Allergies: Allergies Coded Allergies Type Severity Reaction Last Updated Verified No Known Drug Allergies 01/22/15 No (RUBINA WINSTON) Physical Exam: PE: Constitutional: Obese, somewhat disheveled, no acute distress, non-toxic appearance. Cardiovascular: Heart rate regular rhythm. Lungs & Thorax: Diminished breath sounds diffusely, consistent with patient PMHx. Skin: Warm, dry, no erythema, no rash. Extremities: No tenderness, no cyanosis, no clubbing, ROM intact, no edema. Neurologic: Alert and oriented x4, motor function intact, sensory function intact, no focal deficits noted. (RUBINA WINSTON) Current Patient Data: Labs: Laboratory Tests Test 02/23/21 14:13 White Blood Count 5.2 x10^3/uL (4.0-11.0) Red Blood Count 4.56 x10^6/uL (3.50-5.40) Hemoglobin 13.6 g/dL (12.0-15.5) Hematocrit 42.1 % (36.0-47.0) Mean Corpuscular Volume 92 fL (79-100) Mean Corpuscular Hemoglobin 30 pg (25-35) Mean Corpuscular Hemoglobin Concent 32 g/dL (31-37) Red Cell Distribution Width 15.0 % (11.5-14.5) Platelet Count 141 x10^3/uL (140-400) Neutrophils (%) (Auto) 67 % (31-73) Lymphocytes (%) (Auto) 20 % (24-48) Monocytes (%) (Auto) 10 % (0-9) Eosinophils (%) (Auto) 3 % (0-3) Basophils (%) (Auto) 1 % (0-3) Neutrophils # (Auto) 3.5 x10^3uL (1.8-7.7) Lymphocytes # (Auto) 1.0 x10^3/uL (1.0-4.8) Monocytes # (Auto) 0.5 x10^3/uL (0.0-1.1) Eosinophils # (Auto) 0.1 x10^3/uL (0.0-0.7) Basophils # (Auto) 0.0 x10^3/uL (0.0-0.2) Sodium Level 136 mmol/L (136-145) Potassium Level 4.2 mmol/L (3.5-5.1) Chloride Level 95 mmol/L (98-107) Carbon Dioxide Level 38 mmol/L (21-32) Anion Gap 3 (6-14) Blood Urea Nitrogen 18 mg/dL (7-20) Creatinine 0.8 mg/dL (0.6-1.0) Estimated GFR (Cockcroft-Gault) 69.4 Glucose Level 388 mg/dL (70-99) Calcium Level 9.0 mg/dL (8.5-10.1) Troponin I High Sensitivity 16 ng/L (4-50) Vital Signs: Vital Signs Date Time Temp Pulse Resp B/P (MAP) Pulse Ox O2 Delivery O2 Flow Rate FiO2 02/23/21 13:47 97.9 85 18 155/81 (105) 98 Nasal Cannula 3.0 (RUBINA WINSTON) EKG: EKG: EKG Interpreted by Dr. Dr. Wang at 1412: Sinus rhythm 83 bpm with occasional PVCs. First-degree heart block CO interval 244 ms. No STEMI. (RUBINA WINSTON) Radiology/Procedures: Radiology/Procedures: PROCEDURE: PORTABLE CHEST 1V AP chest. HISTORY: Palpitations AP view of the chest was compared with a study from February 10. Heart is enlarged. There are changes from previous valve surgery. There is no effusion. There are patchy infiltrates in both lungs. There has been a mild improvement compared to February 10 but not complete resolution. IMPRESSION: 1. Mild improvement compared to January with persistent areas of infiltrate bilaterally. Electronically signed by: Ke Dodd MD (02/23/2021 2:25 PM) [id number] (RUBINA WINSTON) Heart Score: C/O Chest Pain: No (RUBINA WINSTON) Course & Med Decision Making: Course & Med Decision Making Pertinent Labs and Imaging studies reviewed. (See chart for details) Patient has asymptomatic PVCs. EKG, chest x-ray, troponin and other lab work will be ordered today. Patient's chest x-ray is improved from prior study. EKG does show first-degree heart block with occasional PVCs, however no emergent pathology appreciated. Patient will be discharged home with instruction to follow-up with cardiology this week or early next week, as well as visit her primary care provider for further blood glucose management. Patient's daughter is at bedside. Patient and daughter understand and are agreeable to discharge plan. (RUBINA WINSTON) Dragon Disclaimer: Dragon Disclaimer: This electronic medical record was generated, in whole or in part, using a voice recognition dictation system. (RUBINA WINSTON) Attending Co-Sign The patient was seen and interviewed as well as examined at the bedside. The chart was reviewed. The case was discussed. Agree with the plan of care. (KETTY WANG DO) Departure Departure: Impression: Primary Impression: Premature ventricular beats Additional Impressions: First degree heart block COPD (chronic obstructive pulmonary disease) Qualified Codes: J44.9 - Chronic obstructive pulmonary disease, unspecified Poorly controlled diabetes mellitus Disposition: HOME / SELF CARE / HOMELESS Condition: STABLE Referrals: JULIO REYNA MD (PCP) PAM PARRISH MD Patient Instructions: Diabetes, FAQs, How to Avoid Diabetes Problems, Premature Beats Additional Instructions: As discussed, your EKG today shows a first-degree heart block with occasional premature ventricular complexes. As you are not currently experiencing any symptoms, they do not require emergent attention. However, it will be very important that you visit a marketing professor this week or early next week. Contact information was provided to you. Additionally, your blood sugar was elevated here in the department. Please follow-up with your primary care provider regarding blood sugar management, as there are significant cardiovascular and renal risks to uncontrolled blood sugar. Please return to the emergency department if you develop any new symptoms. RUBINA WINSTON Feb 23, 2021 14:51 KETTY WANG DO Feb 25, 2021 15:08
[2021-02-23 15:45] VITALS: BP 112/63
--- NOTE | 2021-02-23 20:23 | EKG ---
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
== END 2021-02-23 16:39 | disposition home or self-care (01) ==
LOC: ER 13:27
DX: I49.3 Ventricular premature depolarization (principal); I44.0 Atrioventricular block, first degree; J44.9 Chronic obstructive pulmonary disease, unspecified; E11.65 Type 2 diabetes mellitus with hyperglycemia; Z95.1 Presence of aortocoronary bypass graft
CPT/HCPCS: 36415; 71045; 80048; 84484; 85025; 93005; 99285

== ENCOUNTER → 2021-03-17 | Outpatient (CLI) | payer MEDICARE, OTHER ==
[2021-02-23 15:45] VITALS: BP 112/63
--- NOTE | 2021-03-17 18:04 | CARD ---
MR#: [id number] Date of Study: 03/17/2021 Ordering Physician: PAM PARRISH, Referring Physician: PAM PARRISH, Tech: Josee Quiroga [facility] APPROVED REPORT EXAM: Two-dimensional and M-mode echocardiogram with Doppler and color Doppler. Other Information Quality : AverageHR: 62bpm Technically limited study due to body habitus. INDICATION Aortic Valve Disease Surgery/Intervention Status/Post Aortic Valve Replacement: RISK FACTORS Hypertension Hyperlipidemia Diabetes Smoking 2D DIMENSIONS RVDd4.7 (2.9-3.5cm)Left Atrium(2D)4.9 (1.6-4.0cm) IVSd1.2 (0.7-1.1cm)Aortic Root(2D)3.0 (2.0-3.7cm) LVDd4.4 (3.9-5.9cm)LVOT Diameter2.1 (1.8-2.4cm) PWd1.1 (0.7-1.1cm)LVDs3.1 (2.5-4.0cm) FS (%) 29.7 %SV50.6 ml Aortic Valve AoV Peak Dale.331.0cm/sAoV VTI66.4cm AO Peak GR.43.8mmHgLVOT Peak Dale.128.8cm/s LVOT VTI 26.67cmAO Mean GR.23mmHg ILDEFONSO (VMAX)1.05jy0LHT (VTI)1.40cm2 Mitral Valve MV E Cfalrulq83.9cm/sMV E Peak Gr.1mmHg MV DECEL [id number] A Fdwdkcwu33.9cm/s MV E Mean Gr.0mmHgE/A Ratio0.7 Pulmonary Valve PV Peak Tzkivyan21.3cm/sPV Peak Grad.3mmHg Tricuspid Valve TR P. Fliaxtyw204ma/sRAP UUDQPIYL0miDz TR Peak Gr.36qdMuGTCD08skYx LEFT VENTRICLE The left ventricle is normal size. There is mild concentric left ventricular hypertrophy. The left ve ntricular systolic function is normal and the ejection fraction is within normal range. The Ejection Fraction is 50-55%. Septal motion consistent with post-operative state. Transmitral Doppler flow zelda merrick is Grade I-abnormal relaxation pattern. RIGHT VENTRICLE The right ventricle is mild to moderately dilated. There is normal right ventricular wall thickness. Systolic function is borderline reduced. ATRIA The left atrium is borderline dilated. The right atrium is mildly dilated. The interatrial septum is intact with no evidence for an atrial septal defect or patent foramen ovale as noted on 2-D or Dopple r imaging. AORTIC VALVE Doppler and Color Flow revealed no significant aortic regurgitation. Calculated aortic valve area is 1.7 cm2 with maximum pressure gradient of 44 mmHg and mean pressure gradient of 23 mmHg. There is a p rosthetic aortic valve prosthesis which is well seated. MITRAL VALVE The mitral valve is mildly thickened. There is no evidence of mitral valve prolapse. There is no mitr al valve stenosis. Doppler and Color-flow revealed trace to mild mitral regurgitation. TRICUSPID VALVE The tricuspid valve is normal in structure and function. Doppler and Color Flow revealed trace tricus pid regurgitation with an estimated PAP of 40 mmHg. There is no tricuspid valve stenosis. PULMONIC VALVE The pulmonic valve is not well visualized. Doppler and Color Flow revealed trace pulmonic valvular re gurgitation. GREAT VESSELS The aortic root is normal in size. The ascending aorta is mildly dilated measuring 3.5 cm. The IVC is normal in size and collapses >50% with inspiration. PERICARDIAL EFFUSION There is no evidence of significant pericardial effusion. Critical Notification Critical Value: No <Conclusion> The left ventricle is normal size. The left ventricular systolic function is normal and the ejection fraction is within normal range. The Ejection Fraction is 50-55%. Septal motion consistent with post-operative state. There is mild concentric left ventricular hypertrophy. There is a prosthetic aortic valve prosthesis which is well seated. Doppler and Color Flow revealed no significant aortic regurgitation. Calculated aortic valve area is 1.7 cm2 with maximum pressure gradient of 44 mmHg and mean pressure g radient of 23 mmHg. Doppler and Color-flow revealed trace to mild mitral regurgitation. Doppler and Color Flow revealed trace tricuspid regurgitation with an estimated PAP of 40 mmHg. The ascending aorta is mildly dilated measuring 3.5 cm. Signed by : Noel Perez MD Electronically Approved : 03/17/2021 18:03:48
== END ==
LOC: ECHO 07:43
PROVIDERS: ATTEND Internal Medicine Cardiovascular Disease
DX: I05.8 Other rheumatic mitral valve diseases (principal); I77.810 Thoracic aortic ectasia; Z95.2 Presence of prosthetic heart valve
CPT/HCPCS: 93306

== ENCOUNTER → 2021-04-01 | Outpatient (CLI) | payer MEDICARE, OTHER ==
--- NOTE | 2021-04-01 12:33 | RAD ---
MR#: [id number] Date of Study: 04/01/2021 Ordering Physician: PAM YARBROUGH, Referring Physician: MARGARET KOHLER Tech: RT Lubna (R) (N) APPROVED REPORT Test Type: Pharmacological/ Dobutamine Stress Nurse/Tech: Pam / Micah Test Indications: CAD Medications: See EHR Resting Heart Rate: 85 bpm Resting Blood Pressure: 170/77mmHg Pretest Chest Pain: None Nurse/Tech Notes Pt COPD and on 3L O2 POST EXERCISE Reason for Termination: Reached target heart rate w/ Dobutamine Target HR: 120 Max HR: 124 bpm 105% of Maximum Predicted HR: 120 bpm Max Blood Pressure: 165/65mmHg Blood Pressure response to exercise: Normal blood pressure response during stress. Heart Rate response to exercise: Increased Chest Pain: No. Arrhythmia: Yes. ST Change: Yes. INTERPRETATION Stress EKG Conclusion: Baseline EKG showed sinus rhythm. No ischemic changes at peak stress. Few P VCs without any significant arrhythmias. Imaging Protocol IMAGE PROTOCOL: Rest Tc-99m/stress Tc-99m 1 day Rest: Stress: Viability: Radiopharm.Tc99m FncgeheljWy80w Sestamibi Rtpf24zZh 32mCi Duration 15min. 15min. Img Date 04/01/2021 04/01/2021 Inj-Img Pdsw42iul. 60min. Rest Admin Site:IV - Left AntecubitalAdministrator: RT Lubna (R)(N) Stress Admin Site: IV - Left AntecubitalAdministrator: RT Lubna (R)(N) STRESS DATA End Diast. Vol.116.0mlAv. Heart Rate82.0bpm End Syst. Vol.35.0mlCO Index BSA0.0L/min Myocardial Kipx519.0gEject. Qdxwlewt67.0% Stress Rates Pk. Fill Rate3.63EDV/secLVtime Pk. Fill 164.38msec Pk. Empty Rate3.97ESV/secLVtime Pk. Tmlja199.40msec 1/3 Pk. Fill1.58EDV/sec Stress Scores Regional WT1.00Summed WT6.00 Regional WM0.00Summed WM2.00 Study quality was good. Left Ventricular size was Normal at Rest and Stress. Lung uptake was . Left Ventricular ejection fraction is 59%. The rest and stress images show normal perfusion, normal contraction and thickening. LV Perf. Quant 17 Seg. SSS2.00 17 Seg. SRS2.00 17 Seg. SDS1.00 Stress Defect Extent (% LAD)0.00Rest Defect Extent (% LAD)0.00Rev. Defect Extent (% LAD)0.00 Stress Defect Extent (% LCX) 0.00Rest Defect Extent (% LCX)7.50Rev. Defect Extent (% LCX)0.00 Stress Defect Extent (% RCA)0.00Rest Defect Extent (% RCA)0.00Rev. Defect Extent (% RCA)0.00 Stress Defect Extent (% LAURE)0.00Rest Defect Extent (% LAURE)1.30Rev. Defect Extent (% LAURE)0.00 Conclusion 1. Dobutamine infusion cardioisotope stress test did not show any evidence of ischemia or infarct. 2. Normal left ventricular systolic function with ejection fraction calculated at 59%. 3. Low risk for cardiac events. Signed by : Pam Yarbrough, Electronically Approved : 04/01/2021 12:32:41
== END ==
LOC: NM 07:43
PROVIDERS: ATTEND Internal Medicine Cardiovascular Disease
DX: I25.10 Atherosclerotic heart disease of native coronary artery without angina pectoris (principal)
CPT/HCPCS: 78452; 93017; A9500; J1250

== ENCOUNTER → 2021-06-08 | Outpatient (CLI) | payer MEDICARE, OTHER ==
--- NOTE | 2021-06-08 14:44 | RAD ---
EXAM: Pelvis and left hip, 3 views; left knee, 2 views; left ankle, 2 views. HISTORY: Fall. Pain. COMPARISON: None. FINDINGS: Pelvis and left hip: A frontal view the pelvis and 2 views of the left hip are obtained. There is no fracture, dislocation or subluxation. The femoral heads are normal in configuration and seated approp riately. There is degenerative change involving the lower lumbar spine. There are vascular calcificat ions. There is a suspected vascular clip overlying the left inguinal region. Left knee: 2 views of the left knee are obtained. There is no fracture, dislocation or subluxation. T here is no joint effusion. There are vascular clips along the medial thigh and knee soft tissues. Left ankle: 2 views left ankle are obtained. There is no fracture, dislocation or subluxation. There is mild to moderate tibiotalar joint spurring. There is a tiny plantar spur. There is moderate midfoo t degenerative spurring and subchondral sclerosis. There is soft tissue edema. IMPRESSION: 1. 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 2. No acute osseous finding. Electronically signed by: Amy Tony MD (06/08/2021 2:42 PM) [id number]
== END ==
LOC: PMG 13:58
PROVIDERS: ATTEND Physician Assistant
DX: S80.02XA Contusion of left knee, initial encounter (principal); S80.12XA Contusion of left lower leg, initial encounter; M19.072 Primary osteoarthritis, left ankle and foot; M76.892 Other specified enthesopathies of left lower limb, excluding foot; W19.XXXA Unspecified fall, initial encounter; Y93.89 Activity, other specified; Y92.89 Other specified places as the place of occurrence of the external cause; Y99.8 Other external cause status
CPT/HCPCS: 73502; 73562; 73610

== ENCOUNTER → 2021-07-06 | Outpatient (CLI) | payer MEDICARE, OTHER ==
--- NOTE | 2021-07-06 15:47 | RAD ---
XR LUMBAR SPINE 2-3V History: Pain Technique: 3 views lumbar spine. Comparison: December 27, 2013 Findings: Chronic L1 compression fracture, unchanged moderate height loss. Chronic lower thoracic anterior vert ebral body wedging. No acute fracture. Moderate degenerative disc changes most prominent L2-L3 and L3 -L4. Facet arthropathy. Impression: 1. Moderate lumbar spondylosis. 2. Chronic L1 compression fracture. Electronically signed by: Jose M Lau DO (07/06/2021 3:45 PM) [id number]
== END ==
LOC: RAD 11:18
PROVIDERS: ATTEND Family Medicine
DX: M47.816 Spondylosis without myelopathy or radiculopathy, lumbar region (principal); M51.36 Other intervertebral disc degeneration, lumbar region; M48.56XA Collapsed vertebra, not elsewhere classified, lumbar region, initial encounter for fracture
CPT/HCPCS: 72100